=== PATIENT | male | born 1950 | race Caucasian/White ===

== ENCOUNTER 2016-07-02 11:10 | Emergency (ER) | payer BC ==
[~2016-07-02] VITALS: Ht 175.3 cm; Wt 92.9 kg
[~2016-07-02 11:10] MED LIST: BENICAR HCT 401 EACH PO; BYSTOLIC10 MG PO; LIPITOR10 MG PO; MULTI-DAY VITA1 EACH PO; NORCO 5/3251 TABLET PO; OMEGA-3 FLAXS1000 MG PO; PRILOSEC OTC20 MG PO
[2016-07-02 11:45] VITALS: BP 171/80
[2016-07-02 12:26] LABS: HEMATOCRIT 42.6 % (38.0-50.0); MCH 31.6 PG (29.0-34.0); MCHC 34.3 G/DL (30.0-36.0); MCV 92.2 FL (86-99); MEAN PLAT.VOLUME 9.8 uM^3 (9.0-12.4); PLATELET COUNT 178 K/uL (156-360); RBC DIS.WIDTH-CV 12.2 % (11.8-14.6); RBC DIS.WIDTH-SD 39.9 % (39-53); RED BLOOD COUNT 4.62 M/uL (4.00-5.50); WHITE BLOOD COUNT 7.5 K/uL (4.1-10.2)
[2016-07-02 12:37] LABS: CHLORIDE 103 mEq/L (99-109); POTASSIUM 4.5 mEq/L (3.7-5.4); SODIUM 142 mEq/L (136-147)
[2016-07-02 12:39] LABS: GLUCOSE 99 mg/dL (70-99)
[2016-07-02 12:40] LABS: ANION GAP 12 MEQ/L (2-14)
[2016-07-02 12:43] LABS: GFR ESTIMATE (CALCULATED) > 59 mL/min/
[2016-07-02 12:44] LABS: UREA NITROGEN (BUN) 25 mg/dL (9-23)
[2016-07-02 12:52] LABS: TROP-I INTERPRETATION NEGATIVE; TROPONIN-I < 0.01 ng/mL (0.0-0.30)
== END 2016-07-02 15:53 | disposition left against medical advice (07) ==
LOC: EME 11:10
DX: R42 Dizziness and giddiness (principal); R41.0 Disorientation, unspecified; M79.602 Pain in left arm; Z53.21 Procedure and treatment not carried out due to patient leaving prior to being seen by health care provider
CPT/HCPCS: 71020; 80048; 84484; 85027; 93005